=== PATIENT | female | born 1965 | race African-American/Black ===

== ENCOUNTER 2016-05-03 21:46 | Emergency (ER) | payer OTHER ==
[2016-05-03 21:51] VITALS: BMI 19.3
--- NOTE | 2016-05-03 22:06 | PDOC ---
History of Present Illness - General History Source: Patient, Family Exam Limitations: No Limitations - History of Present Illness Initial Comments: 05/03/16 23:22 The patient is a 50 year old female, with a significant past medical history diabetes, liver disease, ascites, and anasarca, who presents to the emergency complaining of decreased urinary output for approximately 5 days. She reports lower abdominal pain, but denies nausea, vomiting, diarrhea, or constipation. The patient reports associated flank pain and vaginal swelling secondary to decreased urinary output. The patient denies any dysuria or hematuria. She reports intermittent shortness of breath for several months. As per daughter, the patient has a history of liver disease, and has had jaundice for approximately 2 years. The patient reports she normally is treated by Dr. Silva for her liver disease. Today, daughter reports the patient is retaining water and has subsequent swelling in her lower extremities. The patient reports difficulty lifting legs secondary to swelling. The patient reports chills, but denies any fever, cough, headache, or dizziness. Allergies: None reported. Social History: Non-smoker. Denies alcohol or drug use. Past Surgical History: X2 PCP: Dr. Silva <Ada Mary - Last Filed: 05/03/16 23:21> <Jewel Gross - Last Filed: 05/04/16 02:47> - General History Source: Patient Exam Limitations: No Limitations <Margaret Carrillo - Last Filed: 05/06/16 08:30> - General Chief Complaint: Pain Stated Complaint: URINARY PROBLEM/PAIN Time Seen by Provider: 05/03/16 22:03 Past History <Ada Mary - Last Filed: 05/03/16 23:21> <Jewel Gross - Last Filed: 05/04/16 02:47> - Past Medical History Diabetes: Yes - Psycho/Social/Smoking Cessation Hx Suicidal Ideation: No Smoking History: Never smoked <Margaret Carrillo - Last Filed: 05/06/16 08:30> - Past Medical History Allergies/Adverse Reactions: Allergies Allergy/AdvReac Type Severity Reaction Status Date / Time No Known Allergies Allergy Verified 05/03/16 21:51 Review of Systems - Review of Systems Able to Perform ROS?: Yes Comments:: 05/03/16 23:21 GENERAL/CONSTITUTIONAL: Yes: +chills. No: fever, loss of appetite. HEAD, EYES, EARS, NOSE AND THROAT: Yes: +jaundice. No: change in vision, ear pain, discharge, sore throat, throat swelling. CARDIOVASCULAR: No: chest pain, lightheadedness, palpitations, syncope RESPIRATORY: Yes: +shortness of breath. No: cough, wheezing, hemoptysis, stridor. GASTROINTESTINAL: Yes: +lower abdominal pain. No: nausea, vomiting, diarrhea, rectal bleeding, constipation. GENITOURINARY: Yes: +decreased, urinary output, +flank pain No: dysuria, hematuria MUSCULOSKELETAL: Yes: +bilateral leg swelling. No: neck pain, joint pain. SKIN AND BREASTS: No: lesions, pallor, rash or easy bruising. NEUROLOGIC: No: headache, vertigo, paresthesias, weakness ENDOCRINE: No: unexplained weight gain or loss HEMATOLOGIC/LYMPHATIC: No: anemia, easy bleeding, swelling nodes <Mary,Giomilsy - Last Filed: 05/03/16 23:21> *Physical Exam - Vital Signs Last Vital Signs Temp Pulse Resp BP Pulse Ox 99 F 74 18 137/83 100 05/03/16 21:49 05/03/16 21:49 05/03/16 21:49 05/03/16 21:49 05/03/16 21:49 - Physical Exam Comments: 05/03/16 22:30 GENERAL: Cachectic. Anasarca. HEAD: Normal with no signs of trauma. EYES: Scleral icterus. PERRLA, EOMI, conjunctiva clear. ENT: Ears normal, nares patent, oropharynx clear without exudates. Dry mucous membranes. NECK: Normal range of motion, supple without lymphadenopathy, JVD, or masses. LUNGS: Decreased breath sounds at bilateral bases. Breath sounds equal, clear to auscultation bilaterally. No wheezes, and no crackles. HEART: Regular rate and rhythm, normal S1 and S2 without murmur, rub or gallop. ABDOMEN: Abdominal distension. Firm lower abdomen. Tenderness to palpation to the lower abdomen. Normoactive bowel sounds. No guarding, no rebound. EXTREMITIES: 3+pitting edema in bilateral lower extremities. Normal range of motion No clubbing or cyanosis. No erythema. NEUROLOGICAL: Cranial nerves II through XII grossly intact. Normal speech. No focal neurological deficits. MUSCULOSKELETAL: Back non-tender to palpation, no CVA tenderness SKIN: Warm, Dry, normal turgor, no rashes or lesions noted. <Ada Mary - Last Filed: 05/03/16 23:21> - Vital Signs Last Vital Signs Temp Pulse Resp BP Pulse Ox 99 F 74 18 137/83 100 05/03/16 21:49 05/03/16 21:49 05/03/16 21:49 05/03/16 21:49 05/03/16 21:49 <Jewel Gross - Last Filed: 05/04/16 02:47> - Vital Signs Last Vital Signs Temp Pulse Resp BP Pulse Ox 99 F 74 18 137/83 100 05/03/16 21:49 05/03/16 21:49 05/03/16 21:49 05/03/16 21:49 05/03/16 21:49 <Margaret Carrillo - Last Filed: 05/06/16 08:30> Heart Score/ECG Review #1 ECG reviewed & interpreted by me at: 23:54 General ECG Interpretation: Sinus Rhythm, Normal Rate, Normal Intervals, No acute ischemic changes 05/03/16 23:55 <Margaret Carrillo - Last Filed: 05/06/16 08:30> ED Treatment Course - LABORATORY CBC & Chemistry Diagram: 05/03/16 23:15 05/04/16 00:35 - ADDITIONAL ORDERS Additional order review: Laboratory Results 05/04/16 05/04/16 05/03/16 22:20 00:35 23:15 Sodium 132 L Potassium 4.6 Chloride 105 Carbon Dioxide 13 L Anion Gap 14 BUN 80 H Creatinine 3.6 H Creat Clearance w eGFR 13.33 Random Glucose 157 H Calcium 8.2 L Total Bilirubin 11.4 H AST 417 H ALT 288 H Alkaline Phosphatase 2263 H Ammonia 12.34 B-Natriuretic Peptide 119.46 Total Protein 7.1 Albumin 2.1 L Urine Color Ramonita Urine Appearance Clear Urine pH 6.0 Ur Specific [place] 1.010 Urine Protein Negative Urine Glucose (UA) 2+ H Urine Ketones Negative Urine Blood 2+ H Urine Nitrite Negative Urine Bilirubin Negative Urine Urobilinogen 2.0 e.u/dl H Ur Leukocyte Esterase 1+ H Urine RBC 23 Urine WBC 27 Ur Epithelial Cells Rare Urine Bacteria Rare Hyaline Casts 3 Urine Mucus Rare 05/03/16 23:15 Sodium Cancelled Potassium Cancelled Chloride Cancelled Carbon Dioxide Cancelled Anion Gap Cancelled BUN Cancelled Creatinine Cancelled Creat Clearance w eGFR Cancelled Random Glucose Cancelled Calcium Cancelled Total Bilirubin Cancelled AST Cancelled ALT Cancelled Alkaline Phosphatase Cancelled Ammonia B-Natriuretic Peptide Cancelled Total Protein Cancelled Albumin Cancelled Urine Color Urine Appearance Urine pH Ur Specific [place] Urine Protein Urine Glucose (UA) Urine Ketones Urine Blood Urine Nitrite Urine Bilirubin Urine Urobilinogen Ur Leukocyte Esterase Urine RBC Urine WBC Ur Epithelial Cells Urine Bacteria Hyaline Casts Urine Mucus 05/03/16 23:15 RBC 4.09 MCV 69.9 L MCHC 32.7 RDW 17.1 H MPV 9.2 Neutrophils % 74.0 Lymphocytes % 20.0 Monocytes % 3.0 L - Medications Given in the ED: ED Medications Discontinued Medications Generic Name Dose Route Start Last Admin Trade Name Freq PRN Reason Stop Dose Admin Sodium Chloride 1,000 mls @ 75 mls/hr 05/04/16 01:46 05/04/16 02:00 Normal Saline - IV 05/04/16 15:05 75 mls/hr ASDIR STA Administration <Jewel Gross - Last Filed: 05/04/16 02:47> - LABORATORY CBC & Chemistry Diagram: 05/03/16 23:15 05/04/16 00:35 <Margaret Carrillo - Last Filed: 05/06/16 08:30> Medical Decision Making - Medical Decision Making 05/04/16 03:03 Pt required EJ placement. <Jewel Gross - Last Filed: 05/04/16 02:47> - Medical Decision Making 05/03/16 22:05 A portion of this note was documented by scribe services under my direction. I have reviewed the details of the note, within reason, and agree with the documentation with the following case summary and management plan written by me. Nursing documentation reviewed and incorporated into medical decision making 05/03/16 23:43 This is a 50 yo F with a history of some liver problem (which pt states began 2 years ago, she has been followed at [facility] for the past year , she states she currently is on something for her liver, that she has a billiary stent Pt also has a history of DM, several months ago, she was admitted with hyperosmolar hyperglycemic nonketotic state She presents to [facility] ER for reasons that are unclear to me Per the patient, she has had decreased urine output since Thursday (5 days ago), she has progressively had worsening lower extremity edema and shortness of breath Pt and her family were in the area and came to the ER because she reported shortness of breath She is tolerating po (though decreased amounts) The patient reports lower abdominal pain, distention and tenderness Pt apparently was told at [facility] that her labs were "stable" According to patient's daughter, all they do at [facility] is check her labs 05/03/16 23:55 05/04/16 00:06 Laboratory Tests 05/03/16 23:15 WBC 14.3 H Hgb 9.4 L Hct 28.6 L Plt Count 416 05/04/16 01:00 Initial CMP hemolyzed CMP re sent CT abd and pelvis pending Admit vs. transfer pending results of CT 05/04/16 01:20 Awaiting CMP Unable to void Cathether placed Return of approximately 1 L dark dark urine Nurse asked to switch to a vo cathether Urine sent for UA PT signed out to Dr. Gross <Margaret Carrillo - Last Filed: 05/06/16 08:30> *DC/Admit/Observation/Transfer - Attestations Scribe Attestion: 05/03/16 22:30 Documentation prepared by Ada Mary, acting as medical research scientist for Margaret Carrillo MD. <Ada Mary - Last Filed: 05/03/16 23:21> - Discharge Dispostion Admit: No Decision to Admit order Date/Time: 05/04/16 03:03 <Jewel Gross - Last Filed: 05/04/16 02:47> <Margaret Carrillo - Last Filed: 05/06/16 08:30> Diagnosis at time of Disposition: Hepatorenal syndrome, Jaundice Hepatic failure Qualifiers: Liver failure chronicity: acute - Discharge Dispostion Disposition: TRANSFER ACUTE CARE/OTHER HOSP Condition at time of disposition: Critical - Referrals Referrals: STAFF,NOT ON [Primary Care Provider] -
[2016-05-03 23:24] LABS: MCH 22.8 pg (25.7-33.7); MCHC 32.7 g/dl (32.0-36.0); MEAN CELL VOLUME 69.9 fl (80-96); MEAN PLT VOLUME 9.2 fl (7.5-11.1); PLATELET COUNT 416 K/MM3 (134-434); RDW 17.1 % (11.6-15.6); WHITE BLOOD COUNT 14.3 K/mm3 (4.0-10.0)
[2016-05-04 00:41] LABS: PLATELET COMMENT2 NO CLOTTING DETECTED; PLATELET COMMENT3 MOD LARGE PLTS
[2016-05-04 00:42] LABS: ANISOCYTOSIS 2+; HYPOCHROMIA 2+; MICROCYTOSIS 2+; PLATELET ESTIMATE SLT DECREASED (NORMAL); POIKILOCYTOSIS 2+; POLYCHROMASIA 1+; SPHEROCYTE 1+; TARGET CELLS 1+
[2016-05-04 01:09] LABS: ALBUMIN 2.1 g/dl (3.4-5.0); BILIRUBIN,TOTAL 11.4 mg/dL (0.2-1.0); CALCIUM 8.2 mg/dL (8.5-10.1); CREATININE 3.6 mg/dL (0.55-1.02); TOT PROT 7.1 g/dl (6.4-8.2)
[2016-05-04] MEDS ORDERED: SODIUM CHLORIDE 1,000 ML IV STA (01:46)
[2016-05-04] MEDS ORDERED: PIPERACILLIN/TAZOB 3.375 GM/50 ML PRE-DOCKED IVPB ONE (01:51)
--- NOTE | 2016-05-04 01:55 | PDOC ---
History of Present Illness - General Chief Complaint: Pain Stated Complaint: URINARY PROBLEM/PAIN Time Seen by Provider: 05/03/16 22:03 Past History - Past Medical History Allergies/Adverse Reactions: Allergies Allergy/AdvReac Type Severity Reaction Status Date / Time No Known Allergies Allergy Verified 05/03/16 21:51 Diabetes: Yes - Psycho/Social/Smoking Cessation Hx Suicidal Ideation: No Smoking History: Never smoked *Physical Exam - Vital Signs Last Vital Signs Temp Pulse Resp BP Pulse Ox 99 F 74 18 137/83 100 05/03/16 21:49 05/03/16 21:49 05/03/16 21:49 05/03/16 21:49 05/03/16 21:49 ED Treatment Course - LABORATORY CBC & Chemistry Diagram: 05/03/16 23:15 05/04/16 00:35 - ADDITIONAL ORDERS Additional order review: Laboratory Results 05/04/16 05/03/16 05/03/16 00:35 23:15 23:15 Sodium 132 L Cancelled Potassium 4.6 Cancelled Chloride 105 Cancelled Carbon Dioxide 13 L Cancelled Anion Gap 14 Cancelled BUN 80 H Cancelled Creatinine 3.6 H Cancelled Creat Clearance w eGFR 13.33 Cancelled Random Glucose 157 H Cancelled Calcium 8.2 L Cancelled Total Bilirubin 11.4 H Cancelled AST 417 H Cancelled ALT 288 H Cancelled Alkaline Phosphatase 2263 H Cancelled Ammonia 12.34 B-Natriuretic Peptide 119.46 Cancelled Total Protein 7.1 Cancelled Albumin 2.1 L Cancelled 05/03/16 23:15 RBC 4.09 MCV 69.9 L MCHC 32.7 RDW 17.1 H MPV 9.2 Neutrophils % 74.0 Lymphocytes % 20.0 Monocytes % 3.0 L *DC/Admit/Observation/Transfer Diagnosis at time of Disposition: Liver failure Qualifiers: Liver failure chronicity: acute - Referrals Referrals: STAFF,NOT ON [Primary Care Provider] - - Patient Instructions - Post Discharge Activity
[2016-05-04 02:01] LABS: URINE APPEARANCE CLEAR; URINE BILIRUBIN NEGATIVE (NEGATIVE); URINE COLOR AMBER; URINE GLUCOSE (UA) 2+ (NEGATIVE); URINE KETONE NEGATIVE (NEGATIVE); URINE NITRITE NEGATIVE (NEGATIVE); URINE PROTEIN NEGATIVE (NEGATIVE); URINE UROBILINOGEN 2.0 E.U/dl E.U./dl (0.2-1.0)
[2016-05-04] MEDS ORDERED: PIPERACILLIN/TAZOB 3.375 GM 50 ML IVPB ONE (02:02)
[2016-05-04 02:05] LABS: URINE BLOOD 2+ (NEGATIVE); URINE LEUK ESTERASE 1+ (NEGATIVE)
[2016-05-04 02:06] LABS: URINE BACTERIA RARE /hpf (NONE SEEN); URINE HYALINE CAST 3 /lpf; URINE MUCUS RARE; URINE RBC 23 /hpf (0-3); URINE WBC 27 /hpf (3-5)
--- NOTE | 2016-05-04 02:23 | PDOC ---
*Physical Exam - Vital Signs Last Vital Signs Temp Pulse Resp BP Pulse Ox 99 F 74 18 137/83 100 05/03/16 21:49 05/03/16 21:49 05/03/16 21:49 05/03/16 21:49 05/03/16 21:49 ED Treatment Course - LABORATORY CBC & Chemistry Diagram: 05/03/16 23:15 05/04/16 00:35 - ADDITIONAL ORDERS Additional order review: Laboratory Results 05/04/16 05/04/16 05/03/16 22:20 00:35 23:15 Sodium 132 L Potassium 4.6 Chloride 105 Carbon Dioxide 13 L Anion Gap 14 BUN 80 H Creatinine 3.6 H Creat Clearance w eGFR 13.33 Random Glucose 157 H Calcium 8.2 L Total Bilirubin 11.4 H AST 417 H ALT 288 H Alkaline Phosphatase 2263 H Ammonia 12.34 B-Natriuretic Peptide 119.46 Total Protein 7.1 Albumin 2.1 L Urine Color Ramonita Urine Appearance Clear Urine pH 6.0 Ur Specific [place] 1.010 Urine Protein Negative Urine Glucose (UA) 2+ H Urine Ketones Negative Urine Blood 2+ H Urine Nitrite Negative Urine Bilirubin Negative Urine Urobilinogen 2.0 e.u/dl H Ur Leukocyte Esterase 1+ H Urine RBC 23 Urine WBC 27 Ur Epithelial Cells Rare Urine Bacteria Rare Hyaline Casts 3 Urine Mucus Rare 05/03/16 23:15 Sodium Cancelled Potassium Cancelled Chloride Cancelled Carbon Dioxide Cancelled Anion Gap Cancelled BUN Cancelled Creatinine Cancelled Creat Clearance w eGFR Cancelled Random Glucose Cancelled Calcium Cancelled Total Bilirubin Cancelled AST Cancelled ALT Cancelled Alkaline Phosphatase Cancelled Ammonia B-Natriuretic Peptide Cancelled Total Protein Cancelled Albumin Cancelled Urine Color Urine Appearance Urine pH Ur Specific [place] Urine Protein Urine Glucose (UA) Urine Ketones Urine Blood Urine Nitrite Urine Bilirubin Urine Urobilinogen Ur Leukocyte Esterase Urine RBC Urine WBC Ur Epithelial Cells Urine Bacteria Hyaline Casts Urine Mucus 05/03/16 23:15 RBC 4.09 MCV 69.9 L MCHC 32.7 RDW 17.1 H MPV 9.2 Neutrophils % 74.0 Lymphocytes % 20.0 Monocytes % 3.0 L - Medications Given in the ED: ED Medications Discontinued Medications Generic Name Dose Route Start Last Admin Trade Name Freq PRN Reason Stop Dose Admin Sodium Chloride 1,000 mls @ 75 mls/hr 05/04/16 01:46 05/04/16 02:00 Normal Saline - IV 05/04/16 15:05 75 mls/hr ASDIR STA Administration Medical Decision Making - Medical Decision Making 05/04/16 02:20 This is a 50yo F received on sign out, comfortable however, with very concerning diagnostics. She has h/o chronic liver disease and is currently worse in terms of LFT elevation and also has acute renal failure making this very suspicious for hepatorenal syndrome; I have discussed the case with Dr. Bobby at [facility] who agrees and accepts the patient; endorses HOLDING antibiotics for paracetensis at their facility; they endorse as well albumin 25% . She is going to also have CT abdomen/pelvis without contrast; transportation is arranged via [facility]; I have advocated for ICU or telemetry given the concern for high mortality and morbidity from the above concern. She has a slight leukocytosis as well; will send lactate. I have communicated with the family and answered all questions. *DC/Admit/Observation/Transfer Diagnosis at time of Disposition: Hepatic failure Qualifiers: Liver failure chronicity: acute - Referrals Referrals: STAFF,NOT ON [Primary Care Provider] - - Patient Instructions - Post Discharge Activity
[2016-05-04] MEDS ORDERED: ALBUMIN HUMAN 25% 100 ML VIAL IVPB SCH (03:00)
[2016-05-04 03:27] LABS: INR 1.14 (0.82-1.09); PROTHROMBIN TIME (PATIENT) 12.6 SEC (9.98-11.88)
[2016-05-04 03:30] LABS: ACTIVATED PTT 38.2 SECONDS (26.9-34.4)
[2016-05-04 03:58] VITALS: BP 154/85; PULSE 78; TEMP 97.4
--- NOTE | 2016-05-04 22:29 | EKG ---
Test Reason : Blood Pressure : / mmHG Vent. Rate : 073 BPM Atrial Rate : 073 BPM P-R Int : 146 ms QRS Dur : 068 ms QT Int : 400 ms P-R-T Axes : 046 029 051 degrees QTc Int : 440 ms POOR DATA QUALITY, INTERPRETATION MAY BE ADVERSELY AFFECTED NORMAL SINUS RHYTHM NORMAL ECG NO PREVIOUS ECGS AVAILABLE Confirmed by JESU ZAVALA MD ([id number]) on 05/04/2016 10:28:34 PM Referred By: Confirmed By:JESU ZAVALA MD
== END 2016-05-04 03:59 | disposition short-term general hospital (02) ==
LOC: JER 21:46
DX: K76.7 Hepatorenal syndrome (principal); K72.00 Acute and subacute hepatic failure without coma; E11.9 Type 2 diabetes mellitus without complications
CPT/HCPCS: 36415; 71010-TC; 74176-TC; 80053; 81003; 81015; 82140; 83605; 83880; 85025; 85610; 85730; 87086; 93005; 93010; 99285-25